=== PATIENT | male | born 1975 | race Caucasian/White ===

== ENCOUNTER → 2019-07-04 | Outpatient (CLI) | payer BC ==
--- NOTE | 2019-07-04 14:03 | Diagnostic Imaging Report ---
Ultrasound guided right parotid gland mass fine-needle aspiration. History: Right parotid mass Modality: Ultrasound Sedation: None Anesthesia: Two percent Lidocaine without epinephrine. Approach: Right parotid mass Estimated blood loss: < 5 cc. Specimen: 5 FNA samples submitted to cytology. insulation board calender operator: Brad Ordonez MD. Drawbench Operator Helper: None. Technique: Informed written consent was obtained. Discussion of risks, benefits, and alternatives were made with the patient. The patient expressed understanding and agreed to proceed. A universal timeout was performed prior to starting the procedure. The patient's right parotid gland was scanned with ultrasound and an approximately 1.8 x 1.8 cm hypoechoic lesion was noted in the posterior aspect of the right parotid gland. This lesion was targeted for ultrasound-guided fine-needle aspiration. The patient's skin was marked, prepped exiting, and draped in the usual sterile fashion. Local anesthesia was achieved with lidocaine. Under direct ultrasound guidance 25-gauge needles were advanced into the hypoechoic right parotid mass and fine-needle aspiration was performed. 5 FNA samples were obtained and submitted to cytology. Cytology deemed the samples adequate for interpretation. The skin injury site was dressed with a sterile Band-Aid. The patient tolerated the procedure well. Impression: Technically successful right upper kidney fine-needle aspiration of a right parotid mass under ultrasound guidance. Signed by: Brad Ordonez MD on 07/04/2019 2:00 PM
== END ==
LOC: US 12:40
PROVIDERS: ATTEND Otolaryngology
DX: K11.8 Other diseases of salivary glands (principal)
CPT/HCPCS: 10005; 88172; 88173; 88305

== ENCOUNTER 2020-02-26 05:55 | Observation (INO) | payer BC, OTHER ==
[~2020-02-26] VITALS: Ht 188 cm; Wt 138.8 kg
[~2020-02-26 05:55] MED LIST: LEVOTHYROXINE50 MCG PO; LOSARTAN POTASS25 MG PO; VYVANSE60 MG PO
[2020-02-26] MEDS ORDERED: SODIUM CHLORIDE 0.9% INJ 10 ML VIAL ONE (06:38)
[2020-02-26] MEDS ORDERED: EPINEPHRINE HCL 1:1000 1ML 1 MG/ML AMP ONE (06:38)
[2020-02-26] MEDS ORDERED: HYDROMORPHONE 1MG/1ML INJ ONE ×2 (09:56→10:13)
[2020-02-26] MEDS ORDERED: FENTANYL CITRATE/PF 100MCG/2 ML INJ ONE ×2 (10:37→14:08)
[2020-02-26 12:00] VITALS: BP 133/80
[2020-02-26 12:08] VITALS: BP 139/87
[2020-02-26] MEDS ORDERED: PROPOFOL IV EMULSION 10 MG/ML 20 ML VIAL ONE (13:45)
[2020-02-26] MEDS ORDERED: ONDANSETRON HCL INJ 2MG/ML 2ML 2 MG/ML VIAL ONE (13:45)
[2020-02-26] MEDS ORDERED: GLYCOPYRROLATE INJ 0.2 MG/ML VIAL ONE (13:45)
[2020-02-26] MEDS ORDERED: LIDOCAINE HCL 2% LOCAL INJ 5 ML SDV VIAL INJ ONE (13:45)
[2020-02-26] MEDS ORDERED: SEVOFLURANE INHAL SOLN 250 ML PEN BTL ONE (13:45)
[2020-02-26] MEDS ORDERED: DEXAMETHASONE SOD PHOS INJ 4 MG/ML VIAL ONE (13:45)
[2020-02-26] MEDS ORDERED: CEFAZOLIN SOD 1 GM VIAL IV SCH (14:00)
[2020-02-26] MEDS ORDERED: MIDAZOLAM HCL 2 MG/2 ML VIAL ONE (14:08)
[2020-02-26] MEDS: CEFAZOLIN SOD 1 GM/NS 50ML 50 ML IV SCH ×2 (14:31→21:40)
[2020-02-26] MEDS ORDERED: ACETAMINOPHEN 325 MG TAB PO PRN (14:45)
[2020-02-26 16:24] LABS: BASOPHILS % 0.2 % (0.0-1.0); HEMOGLOBIN 13.8 g/dL (14.0-18.0); LYMPHOCYTES # (AUTO) 0.8 (1.0-3.2); LYMPHOCYTES % 6.2 % (18.0-39.1); MEAN CORPUSCULAR HEMOGLOBIN 28.9 pg (28-32); MEAN CORPUSCULAR HGB CONC 32.9 g/dL (31-35); MEAN CORPUSCULAR VOLUME 87.9 fL (81-99); MONOCYTES # (AUTO) 0.2 (0.2-0.8); MONOCYTES % 1.7 % (4.4-11.3); NEUTROPHILS % 91.5 % (38.7-80.0); PLATELET COUNT 256 x10e3/uL (140-360); RED BLOOD COUNT 4.78 x10e6/uL (4.3-5.7); RED CELL DISTRIBUTION WIDTH 13.7 % (11.7-14.4)
[2020-02-26 16:35] VITALS: BP 113/69
[2020-02-26 16:39] LABS: ANION GAP 14.7 mmol/L (8-16); CALCIUM 8.4 mg/dL (8.4-10.2); CREATININE, SERUM 1.35 mg/dL (0.72-1.25); POTASSIUM 4.7 mmol/L (3.5-5.1)
[2020-02-26] MEDS: D5.45%NS/KCL 20MEQ 1,000 ML IV SCH ×2 (16:48→23:20)
[2020-02-26 20:00] VITALS: BP 112/61
[2020-02-26 20:14] VITALS: BP 112/61
[2020-02-27 00:02] VITALS: BP 107/69
[2020-02-27 04:37] VITALS: BP 107/69
[2020-02-27] MEDS: D5.45%NS/KCL 20MEQ 1,000 ML IV SCH (04:40)
[2020-02-27] MEDS: CEFAZOLIN SOD 1 GM/NS 50ML 50 ML IV SCH (06:10)
[2020-02-27 08:00] VITALS: BP 124/60
[2020-02-27 08:52] VITALS: BP 124/90
== END 2020-02-27 10:02 | disposition home or self-care (01) ==
LOC: OR 05:55 → PACU V 10:20 → MED/SURG 11:43
PROVIDERS: ADMIT Otolaryngology; ATTEND Otolaryngology
DX: D11.0 Benign neoplasm of parotid gland (principal); I10 Essential (primary) hypertension
CPT/HCPCS: 36415; 42410; 80048; 85025; 88307; 88331; 88332; 88333; 93005; G0378 ×2; J0171; J0690 ×2; J1100; J1170; J2001; J2250; J2405; J2704; J3010; U0002; 88305